=== PATIENT | female | born 1985 | race Caucasian/White ===

== ENCOUNTER 2019-02-24 17:55 | Emergency (ER) | payer OTHER, SELFPAY ==
[2019-02-24] MEDS ORDERED: LIDOCAINE 1% MPF 5 ML VIAL ONE (19:58)
[2019-02-24] MEDS ORDERED: BUPIVACAINE 0.5% PF 10 ML VIAL ONE (19:58)
[2019-02-24] MEDS ORDERED: MORPHINE 4 MG/ML SYR ONE (20:57)
[2019-02-24] MEDS ORDERED: ONDANSETRON 4 MG/2 ML VIAL ONE (20:57)
[2019-02-24] MEDS ORDERED: CLINDAMYCIN 900MG/D5W 900 MG/50 ML IVPB IV ONE (21:05)
[2019-02-24 22:11] LABS: Urine Blood TRACE (NEG); Urine Glucose 1+ (NEG); Urine Protein 2+ (NEG); Urine Specific Gravity >1.030 (1.005-1.030); Urine pH 6.5 (5.0-7.0)
[2019-02-24 22:12] LABS: Basophils % 0.4 % (0-1.3); Eosinophils % 1.8 % (0-4.4); Hematocrit 39.5 % (36.0-45.0); Lymphocytes % 19.3 % (15.3-44.8); MPV 8.4 fL (7.6-11.3); Monocytes % 6.4 % (3.3-12.3); RBC Red Blood Cell Count 4.86 M/uL (3.86-4.86)
[2019-02-24 22:19] LABS: Urine Bacteria 20-50 /HPF (<20); Urine Culture Reflex Order NOT NEEDED; Urine RBC <5 /HPF (NONE SEEN)
--- NOTE | 2019-02-24 22:22 | ER ---
Nurse's Notes [facility] Name: Emely Yoo Age: 33 yrs Sex: Female : 1985 Arrival Date: 02/24/2019 Time: 18:00 Bed 30 Private MD: Diagnosis: Cutaneous abscess of perineum;Urinary tract infection, site not specified Presentation: 02/24 18:31 Presenting complaint: Abscess on perineum x 2 days, subjective fever since last night. hb Transition of care: patient was not received from another setting of care. Onset of symptoms was February 23, 2019. Risk Assessment: Do you want to hurt yourself or someone else? Patient reports no desire to harm self or others. Care prior to arrival: None. 18:31 Method Of Arrival: Ambulatory hb 18:31 Acuity: NAVARRO 3 hb 22:38 Initial Sepsis Screen: Does the patient meet any 2 criteria? No. Patient's initial rv sepsis screen is negative. Does the patient have a suspected source of infection? No. Patient's initial sepsis screen is negative. PORTER LUGGAGE: 18:33 LMP 02/04/2019 hb Historical: - Allergies: 18:35 No Known Allergies; hb - Immunization history:: Adult Immunizations up to date. - Social history:: Smoking status: Patient/guardian denies using tobacco. - Ebola Screening: : No symptoms or risks identified at this time. Screenin:37 Abuse screen: Denies threats or abuse. Denies injuries from another. Nutritional rv screening: No deficits noted. Tuberculosis screening: No symptoms or risk factors identified. Fall Risk None identified. Assessment: 19:00 General: Appears in no apparent distress. uncomfortable, Behavior is calm, cooperative. rv 19:00 Pain: Complains of pain in LEFT GROIN AREA. Neuro: Level of Consciousness is awake, rv alert, obeys commands, Oriented to person, place, time, situation. Cardiovascular: Patient's skin is warm and dry. Respiratory: Airway is patent. GI: No signs and/or symptoms were reported involving the gastrointestinal system. : No signs and/or symptoms were reported regarding the genitourinary system. EENT: No signs and/or symptoms were reported regarding the EENT system. Derm: Abscess located on GENITAL AREA. Musculoskeletal: No signs and/or symptoms reported regarding the musculoskeletal system. Vital Signs: 18:33 BP 160 / 91; Pulse 115; Resp 16; Temp 98.7; Pulse Ox 97% on R/A; Weight 86.18 kg; hb Height 5 ft. 2 in. (157.48 cm); Pain 10/10; 20:00 BP 124 / 71; Pulse 99; Resp 19; Temp 98.4; Pulse Ox 97% ; rv 22:22 BP 112 / 66; Pulse 101; Resp 17; Pulse Ox 98% ; rv 22:35 BP 127 / 92; Pulse 96; Resp 17; Pulse Ox 99% ; rv 18:33 Body Mass Index 34.75 (86.18 kg, 157.48 cm) hb ED Course: 18:00 Patient arrived in ED. mr 18:33 Triage completed. hb 18:35 Arm band placed on right wrist. hb 18:43 Aldo Almaraz PA is PHCP. cp 18:43 Aldo Clement MD is Attending Physician. cp 19:00 Patient has correct armband on for positive identification. Placed in gown. Bed in low rv position. Call light in reach. Side rails up X 1. Adult w/ patient. Pulse ox on. NIBP on. 19:00 Assist provider with I \T\ D: of an abscess on GENITAL AREA Set up I\T\D tray. Performed by arsalan ALICEA Culture sent to lab. Wound packed. 4X4s, Dressing with 4X4s, tape Patient tolerated well. [facility] FEEDER ASSOCIATE AT BEDSIDE. Inserted saline lock: 22 gauge in right forearm, using aseptic technique. Blood collected. 19:41 Mckay Pabon RN is Primary Nurse. rv 22:20 Jamey Howe MD is Referral Physician. cp 22:39 IV discontinued, intact, bleeding controlled, No redness/swelling at site. Pressure rv dressing applied. Administered Medications: 20:45 Drug: morphine 4 mg Route: IVP; Site: right forearm; rv 21:15 Follow up: Response: No adverse reaction rv 20:45 Drug: Zofran 4 mg Route: IVP; Site: right forearm; rv 21:15 Follow up: Response: No adverse reaction rv 21:00 Drug: Clindamycin 900 mg Route: IVPB; Infused Over: 30 mins; Site: right forearm; rv 21:39 Follow up: IV Status: Completed infusion; IV Intake: 50ml rv 22:35 Drug: Rocephin - (cefTRIAXone) 1 grams Route: IVPB; Infused Over: 30 mins; Site: right rv forearm; 22:35 Follow up: IV Status: Completed infusion rv Intake: 21:39 IV: 50ml; Total: 50ml. rv Outcome: 22:21 Discharge ordered by MD. cp 22:39 Discharged to home ambulatory. rv 22:39 Condition: good 22:39 Discharge instructions given to patient, Instructed on discharge instructions, follow up and referral plans. medication usage, wound care, Demonstrated understanding of instructions, follow-up care, medications, wound care, Prescriptions given X 3. 22:41 Patient left the ED. rv Addendum: 02/28/2019 07:40 Addendum: Culture Results: Positive urine culture. No further action required. Bacteria s s sensitive to prescribed antibiotic. 03/01/2019 08:28 Addendum: Culture Results: Positive wound culture. Bacteria is resistant to, has s s intermediate sensitivity, or is not tested against prescribed antibiotics. Report given to JON for further evaluation and then to early years teacher for follow up with patient. Phone call Attempt #1 no answer, left Certified letter sent to listed address for patient. Signatures: Adrienne Bob mr PedersenMargot lion, RN RN Aldo Nicolas PA PA cp Baxter, Heather, MONSTER RN Mckay Olivo, RN RN rv Corrections: (The following items were deleted from the chart) 02/24 22:40 19:00 No provider procedures requiring assistance completed. rv rv 22:41 19:00 Assist provider with I \T\ D: of an abscess on GENITAL AREA Set up I\T\D tray. rv Performed by Aldo Almaraz PA Culture sent to lab. Wound packed. 4X4s, Dressing with 4X4s, tape Patient tolerated well. [employer] FEEDER ASSOCIATE AT BEDSIDE rv
--- NOTE | 2019-02-24 22:23 | EDPHYS ---
Physician Documentation [facility] Name: Emely Yoo Age: 33 yrs Sex: Female : 1985 Arrival Date: 02/24/2019 Time: 18:00 Bed 30 Private MD: ED Physician Aldo Clement HPI: 02/24 19:28 This 33 yrs old Female presents to ER via Ambulatory with complaints of cp Abscess. 19:30 The patient presents with an abscess of the perineal area. cp 19:30 Description: swollen, warm. Onset: The symptoms/episode began/occurred 2 day(s) ago. cp Associated signs and symptoms: Pertinent positives: fever last night, Pertinent negatives: discharge, drainage. Severity of symptoms: in the emergency department the symptoms are unchanged, despite home interventions. SHEARING SHED HAND: 18:33 LMP 02/04/2019 hb Historical: - Allergies: 18:35 No Known Allergies; hb - Immunization history:: Adult Immunizations up to date. - Social history:: Smoking status: Patient/guardian denies using tobacco. - Ebola Screening: : No symptoms or risks identified at this time. ROS: 19:35 Eyes: Negative for injury, pain, redness, and discharge. cp 19:35 Constitutional: Negative for body aches, chills, fever, poor PO intake. 19:35 Skin: Positive for abscess, of the perineum. cp 19:35 Respiratory: Negative for cough, shortness of breath, wheezing. cp 19:35 Abdomen/GI: Negative for abdominal pain, nausea, vomiting, and diarrhea. 19:35 All other systems are negative. Exam: 19:45 Constitutional: The patient appears in no acute distress, alert, awake, non-toxic, well cp developed, well nourished. 19:45 Head/Face: Normocephalic, atraumatic. cp 19:45 Chest/axilla: Inspection: normal. cp 19:45 Cardiovascular: Rate: normal, Rhythm: regular. 19:45 Respiratory: the patient does not display signs of respiratory distress, Respirations: cp normal, no use of accessory muscles, no retractions. 19:45 Abdomen/GI: Inspection: abdomen appears normal, Palpation: abdomen is soft and non-tender, in all quadrants. 19:45 Skin: abscess, that is moderate sized, of the left perineum, with induration. Vital Signs: 18:33 BP 160 / 91; Pulse 115; Resp 16; Temp 98.7; Pulse Ox 97% on R/A; Weight 86.18 kg; hb Height 5 ft. 2 in. (157.48 cm); Pain 10/10; 20:00 BP 124 / 71; Pulse 99; Resp 19; Temp 98.4; Pulse Ox 97% ; rv 22:22 BP 112 / 66; Pulse 101; Resp 17; Pulse Ox 98% ; rv 22:35 BP 127 / 92; Pulse 96; Resp 17; Pulse Ox 99% ; rv 18:33 Body Mass Index 34.75 (86.18 kg, 157.48 cm) hb Procedures: 21:00 I \T\ D: Incision and drainage was performed for an abscess of the left perineal Prepped cp with Betadine, Anesthetized with 7 ccs of 50/50 mixture 1% lidocaine w/o epi and 0.5% marcaine. Incised with #11 blade. Drained purulent fluid. Cultures obtained. Packed with iodoform gauze, Dressing: sterile 4x4 gauze, the patient tolerated the procedure well. MDM: 18:48 Patient medically screened. [facility] 20:00 Differential diagnosis: abscess, cellulitis. cp 22:20 Data reviewed: vital signs, nurses notes, lab test result(s), and as a result, I will cp discharge patient. 22:20 Counseling: I had a detailed discussion with the patient and/or guardian regarding: the cp historical points, exam findings, and any diagnostic results supporting the discharge/admit diagnosis, lab results, the need for outpatient follow up, a general surgeon, to return to the emergency department if symptoms worsen or persist or if there are any questions or concerns that arise at home. 22:20 Response to treatment: the patient's symptoms have markedly improved after treatment, and as a result, I will discharge patient. 02/24 20:04 Order name: Wound Culture 02/24 20:04 Order name: CBC with Diff; Complete Time: 22:19 cp 02/24 20:04 Order name: BMP; Complete Time: 22:19 cp 02/24 22:02 Order name: Urine Microscopic Only aa1 02/24 22:02 Order name: Urine Culture aa1 02/24 22:06 Order name: Urine Dipstick--Ancillary (enter results); Complete Time: 22:19 cm6 02/24 19:28 Order name: I\T\D Setup; Complete Time: 19:50 cp 02/24 22:06 Order name: Urine --Ancillary (enter results); Complete Time: 22:19 cm6 02/24 19:28 Order name: Pelvic Exam Setup; Complete Time: 19:50 cp 02/24 20:04 Order name: IV; Complete Time: 21:15 cp Administered Medications: 20:45 Drug: morphine 4 mg Route: IVP; Site: right forearm; rv 21:15 Follow up: Response: No adverse reaction rv 20:45 Drug: Zofran 4 mg Route: IVP; Site: right forearm; rv 21:15 Follow up: Response: No adverse reaction rv 21:00 Drug: Clindamycin 900 mg Route: IVPB; Infused Over: 30 mins; Site: right forearm; rv 21:39 Follow up: IV Status: Completed infusion; IV Intake: 50ml rv 22:35 Drug: Rocephin - (cefTRIAXone) 1 grams Route: IVPB; Infused Over: 30 mins; Site: right rv forearm; 22:35 Follow up: IV Status: Completed infusion rv Disposition: 02/24/19 22:21 Discharged to Home. Impression: Cutaneous abscess of perineum, Urinary tract infection, site not specified. - Condition is Stable. - Discharge Instructions: Skin Abscess, Incision and Drainage, Urinary Tract Infection, Adult. - Prescriptions for Clindamycin HCl 300 mg Oral Capsule - take 1 capsule by ORAL route every 6 hours for 10 days; 40 capsule. Tylenol- Codeine #3 300-30 mg Oral Tablet - take 2 tablets by ORAL route every 6 hours As needed; 15 tablet. Bactrim DS 800- 160 mg Oral Tablet - take 1 tablet by ORAL route every 12 hours for 10 days; 20 tablet. - Medication Reconciliation Form, Thank You Letter, Antibiotic Education, Prescription Opioid Use form. - Follow up: Jamey Howe MD; When: 2 - 3 days; Reason: Recheck today's complaints. - Problem is new. - Symptoms have improved. Addendum: 03/01/2019 16:38 Co-signature as Attending Physician, Aldo Clement MD I agree with the assessment and c quiroga plan of care. Signatures: Dispatcher [employer] EDMS Urbano, Aldo, Aldo Holcomb MD, cha, PA PA cp Baxter, Heather, RN RN hb Mckay Pabon, RN RN rv Corrections: (The following items were deleted from the chart) 02/24 22:41 22:21 02/24/2019 22:21 Discharged to Home. Impression: Cutaneous abscess of perineum; rv Urinary tract infection, site not specified. Condition is Stable. Forms are Medication Reconciliation Form, Thank You Letter, Antibiotic Education, Prescription Opioid Use. Follow up: Jamey Howe; When: 2 - 3 days; Reason: Recheck today's complaints. Problem is new. Symptoms have improved. cp
[2019-02-24] MEDS ORDERED: CEFTRIAXONE/SWI 1gm 1 GM/10 ML SYR ONE (22:43)
== END 2019-02-24 22:41 | disposition home or self-care (01) ==
LOC: ER 17:55
PROC: 0W9N3ZZ Drainage of Female Perineum, Percutaneous Approach (ICD-10-PCS; principal; 2019-02-24)
DX: L02.215 Cutaneous abscess of perineum (principal); N39.0 Urinary tract infection, site not specified
CPT/HCPCS: 36415; 80048; 81003; 81015; 81025; 85025; 87070; 87077; 87086; 87088; 87186; 87205; 96365; 96375; 99284; J0696; J2405